=== PATIENT | male | born 1985 | race Caucasian/White ===

== ENCOUNTER 2016-09-15 20:02 | Emergency (ER) | payer OTHER | END 2016-09-15 21:30 | disposition home or self-care (01) | LOC: ER 20:02 | DX: S91.331A Puncture wound without foreign body, right foot, initial encounter (principal); F41.9 Anxiety disorder, unspecified; F17.210 Nicotine dependence, cigarettes, uncomplicated; G43.909 Migraine, unspecified, not intractable, without status migrainosus; Z88.5 Allergy status to narcotic agent; Z91.018 Allergy to other foods; Z88.8 Allergy status to other drugs, medicaments and biological substances; Z23 Encounter for immunization; W45.0XXA Nail entering through skin, initial encounter | CPT/HCPCS: 90471 ==